=== PATIENT | female | born 1990 | race Caucasian/White ===

== ENCOUNTER 2018-12-15 13:14 | Emergency (ER) | payer SELFPAY ==
[2018-12-15 14:11] LABS: Absolute Lymphocytes (CBC) 1.4 K/uL (0.7-4.9); Absolute Monocytes 0.3 K/uL (0.1-1.3); Absolute Neutrophil 2.9 K/uL (1.8-8.0); Basophils % 0.5 % (0-1.3); Eosinophils % 1.6 % (0-4.4); Hematocrit 44.6 % (36.0-45.0); Lymphocytes % 30.3 % (15.3-44.8); Monocytes % 5.9 % (3.3-12.3); RBC Red Blood Cell Count 5.09 M/uL (3.86-4.86)
[2018-12-15 14:26] LABS: Potassium 3.9 mmol/L (3.5-5.1)
[2018-12-15] MEDS ORDERED: NA CHLORIDE 0.9% 1,000 ML ONE (14:50)
--- OUTSIDE RECORDS SUMMARY | 2018-12-15 15:06 | XMS REPORT ---
:1990 [facility] Address [address] [place] [address] Care Team Providers Name Role Phone Unavailable Unavailable Unavailable Payers Payer Name Policy Type Policy Number Effective Date Expiration Date Problems This patient has no known problems. Allergies, Adverse Reactions, Alerts Allergy Name Allergy Status Severity Reaction(s) Onset Inactive Treating Comments Type Date Date Clinician morphine DA Active [facility] 09-17 00:00: 00 codeine DA Active [facility] 3 00:00: 00 dexamethasone DA Active [facility] - 00:00: 00 Medications This patient has no known medications.
[2018-12-15] MEDS ORDERED: INSULIN -REGULAR HUMAN 50 UNIT/0.5 ML ML ONE (15:07)
[2018-12-15 15:34] LABS: Urine Blood 1+ (NEG); Urine Glucose 2+ (NEG); Urine Protein NEGATIVE (NEG); Urine Specific Gravity 1.005 (1.005-1.030)
[2018-12-15 17:33] LABS: BUN Blood Urea Nitrogen 12 mg/dL (7-18); Bicarbonate 25 mmol/L (21-32); Glucose Level 255 mg/dL (74-106); Sodium Level 141 mmol/L (136-145)
--- NOTE | 2018-12-15 17:54 | ER ---
Nurse's Notes [facility] Name: Radha Barker Age: 28 yrs Sex: Female : 1990 Arrival Date: 12/15/2018 Time: 13:18 Bed 26 Private MD: Diagnosis: Abnormal uterine and vaginal bleeding, unspecified;Hyperglycemia, unspecified Presentation: 12/15 13:19 Presenting complaint: Patient states: heavy vaginal bleeding for about 23 days. sv Transition of care: patient was not received from another setting of care. Onset of symptoms was November 2018. Initial Sepsis Screen: Does the patient meet any 2 criteria? No. Patient's initial sepsis screen is negative. Does the patient have a suspected source of infection? No. Patient's initial sepsis screen is negative. Care prior to arrival: None. 13:19 Method Of Arrival: Ambulatory sv 13:19 Acuity: JARROD 3 sv 13:59 Risk Assessment: Do you want to hurt yourself or someone else? Patient reports no ca1 desire to harm self or others. Triage Assessment: 13:59 General: Appears in no apparent distress. comfortable. General: Behavior is calm, ca1 cooperative, appropriate for age. Pain: Denies pain. 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 - Social history:: Smoking status: Patient/guardian denies using tobacco. - Ebola Screening: : No symptoms or risks identified at this time. Screenin:57 Abuse screen: Denies threats or abuse. Denies injuries from another. Nutritional ca1 screening: No deficits noted. Tuberculosis screening: No symptoms or risk factors identified. Fall Risk None identified. Assessment: 13:57 General: Appears in no apparent distress. comfortable, Behavior is calm, cooperative, ca1 appropriate for age. Pain: Denies pain. Neuro: Level of Consciousness is awake, alert, obeys commands, Oriented to person, place, time, situation. Cardiovascular: Heart tones S1 S2 present Capillary refill < 3 seconds Patient's skin is warm and dry. Respiratory: Airway is patent Trachea midline Respiratory effort is even, unlabored, Respiratory pattern is regular, symmetrical, Breath sounds are clear bilaterally. GI: Abdomen is round non-distended, Bowel sounds present X 4 quads. Abd is soft and non tender X 4 quads. : Reports vaginal bleeding that is bright red, with clots, heavy flow since about a month ago. EENT: No deficits noted. No signs and/or symptoms were reported regarding the EENT system. Derm: Skin is intact, is healthy with good turgor, Skin is pink, warm \T\ dry. Musculoskeletal: Circulation, motion, and sensation intact. Capillary refill < 3 seconds. 14:28 : Urine is clear. ca1 14:55 Reassessment: Patient appears in no apparent distress at this time. Patient and/or ca1 family updated on plan of care and expected duration. Pain level reassessed. Patient is alert, oriented x 3, equal unlabored respirations, skin warm/dry/pink. 15:58 Reassessment: Patient appears in no apparent distress at this time. Patient is alert, ca1 oriented x 3, equal unlabored respirations, skin warm/dry/pink. 16:50 Reassessment: Patient appears in no apparent distress at this time. Patient and/or ca1 family updated on plan of care and expected duration. Pain level reassessed. 17:26 Reassessment: Patient appears in no apparent distress at this time. Patient is alert, ca1 oriented x 3, equal unlabored respirations, skin warm/dry/pink. Awaiting result for repeat BMP. 18:10 Reassessment: Patient appears in no apparent distress at this time. Patient is alert, ca1 oriented x 3, equal unlabored respirations, skin warm/dry/pink. Vital Signs: 13:22 BP 146 / 76; Pulse 85; Resp 18; Temp 97.2; Pulse Ox 99% ; Weight 92.08 kg; Height 5 ft. sv 1 in. (154.94 cm); Pain 0/10; 14:23 BP 100 / 70 LA (auto/reg); Pulse 75; Pulse Ox 97% on R/A; Pain 0/10; jp3 15:30 BP 101 / 84; Pulse 73; Resp 17 S; Temp 97.5(O); Pulse Ox 100% on R/A; ca1 16:29 BP 115 / 69; Pulse 73; Resp 17 S; Pulse Ox 99% on R/A; ca1 17:26 BP 108 / 62; Pulse 72; Resp 17 S; Temp 98.(O); Pulse Ox 100% on R/A; ca1 18:10 BP 105 / 66; Pulse 72; Resp 17 S; Temp 98.4(O); Pulse Ox 99% on R/A; ca1 13:22 Body Mass Index 38.36 (92.08 kg, 154.94 cm) sv ED Course: 13:18 Patient arrived in ED. mr 13:21 Triage completed. sv 13:23 Arm band placed on. sv 13:29 Kofi Bryant PA is PHCP. jmm 13:29 Aman Ruano MD is Attending Physician. jmm 13:53 Callie Childers, NATHALIA is Primary Nurse. ca1 13:55 Inserted saline lock: 22 gauge in left antecubital area, using aseptic technique. Blood jp3 collected. 13:55 Initial lab(s) drawn, by me, sent to lab. jp3 13:57 Patient has correct armband on for positive identification. Placed in gown. Bed in low ca1 position. Call light in reach. Side rails up X 1. Pulse ox on. NIBP on. Warm blanket given. 13:59 BMP Sent. jp3 13:59 CBC with Diff Sent. jp3 14:28 Urine collected: clean catch specimen, clear, Amount Voided: 200mL. ca1 17:00 Assist provider with pelvic exam: Set up pelvic tray. Performed by Kofi RBUIO ca1 Patient tolerated well. 17:10 Repeat lab(s) drawn. by me, sent to lab. jp3 17:12 BMP Sent. jp3 17:53 Matthew Spence MD is Referral Physician. jmm 18:16 IV discontinued, intact, bleeding controlled, No redness/swelling at site. Pressure ca1 dressing applied. Administered Medications: 14:44 Drug: NS 0.9% 1000 ml Route: IV; Rate: 1 bolus; Site: left antecubital; ca1 16:20 Follow up: Urine output 360 ml; IV Status: Completed infusion ca1 14:54 Drug: Insulin Regular Human 5 units {Co-Signature: mg2 (Osiel Parham RN).} Route: ca1 IVP; Site: left antecubital; 17:34 Follow up: Response: No adverse reaction; Blood sugar is lowered ca1 Point of Care Testing: Blood Glucose: 16:12 Blood Glucose: 276 mg/dL; jp3 Ranges: Output: 16:20 Urine: 360ml; Total: 360ml. ca1 Outcome: 17:54 Discharge ordered by MD. sims 18:16 Discharged to home ambulatory, with family. ca1 18:16 Condition: stable 18:16 Discharge instructions given to patient, Instructed on discharge instructions, follow up and referral plans. Demonstrated understanding of instructions, follow-up care. 18:17 Patient left the ED. ca1 Signatures: Una Castillo, RN RN sv Kofi Bryant PA PA jmm Rivera, Mary mr Miriam Hero jp3 Callie Childers RN RN ca1 Osiel Parham RN mg2
--- NOTE | 2018-12-15 17:54 | EDPHYS ---
Physician Documentation [facility] Name: Radha Barker Age: 28 yrs Sex: Female : 1990 Arrival Date: 12/15/2018 Time: 13:18 Bed 26 Private MD: ED Physician Aman Ruano HPI: 12/15 13:43 This 28 yrs old Female presents to ER via Ambulatory with complaints of jmm Vaginal Bleeding. 13:43 The patient presents with vaginal bleeding that is. Onset: The symptoms/episode jmm began/occurred gradually, 1 month(s) ago. Modifying factors: The symptoms are alleviated by nothing, the symptoms are aggravated by nothing. Associated signs and symptoms: Pertinent negatives: urinary frequency, vomiting. This is a 28 year old female with a history of dm that presents to the ED with complaints of 1 month of vaginal bleeding. Patient denies dysuria. Denies weakness. Denies shortness of breath. . 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 - Social history:: Smoking status: Patient/guardian denies using tobacco. - Ebola Screening: : No symptoms or risks identified at this time. ROS: 13:43 Constitutional: Negative for fever, chills, and weight loss, Cardiovascular: Negative jmm for chest pain, palpitations, and edema, Respiratory: Negative for shortness of breath, cough, wheezing, and pleuritic chest pain, Abdomen/GI: Negative for abdominal pain, nausea, vomiting, diarrhea, and constipation. 13:43 : Positive for vaginal bleeding. 13:43 All other systems are negative. Exam: 13:43 Constitutional: This is a well developed, well nourished patient who is awake, alert, jmm and in no acute distress. Head/Face: atraumatic. Eyes: EOMI, no conjunctival erythema appreciated ENT: Moist Mucus Membranes Neck: Trachea midline, Supple Chest/axilla: Normal chest wall appearance and motion. Cardiovascular: Regular rate and rhythm. No edema appreciated Respiratory: Normal respirations, no respiratory distress appreciated Abdomen/GI: Non distended, soft Back: Normal ROM 13:43 Skin: General appearance color normal MS/ Extremity: Moves all extremities, no obvious deformities appreciated, no edema noted to the lower extremities Neuro: Awake and alert, normal gait Psych: Behavior is normal, Mood is normal, Patient is cooperative and pleasant 13:43 : Pelvic Exam: Speculum exam: scant bleeding, os that is closed. Vital Signs: 13:22 BP 146 / 76; Pulse 85; Resp 18; Temp 97.2; Pulse Ox 99% ; Weight 92.08 kg; Height 5 ft. sv 1 in. (154.94 cm); Pain 0/10; 14:23 BP 100 / 70 LA (auto/reg); Pulse 75; Pulse Ox 97% on R/A; Pain 0/10; jp3 15:30 BP 101 / 84; Pulse 73; Resp 17 S; Temp 97.5(O); Pulse Ox 100% on R/A; ca1 16:29 BP 115 / 69; Pulse 73; Resp 17 S; Pulse Ox 99% on R/A; ca1 17:26 BP 108 / 62; Pulse 72; Resp 17 S; Temp 98.(O); Pulse Ox 100% on R/A; ca1 18:10 BP 105 / 66; Pulse 72; Resp 17 S; Temp 98.4(O); Pulse Ox 99% on R/A; ca1 13:22 Body Mass Index 38.36 (92.08 kg, 154.94 cm) sv MDM: 13:42 Patient medically screened. levi 17:53 Data reviewed: vital signs, nurses notes. Counseling: I had a detailed discussion with levi the patient and/or guardian regarding: the historical points, exam findings, and any diagnostic results supporting the discharge/admit diagnosis, lab results, the need for outpatient follow up, to return to the emergency department if symptoms worsen or persist or if there are any questions or concerns that arise at home. 17:53 ED course: Patient is alert and non toxic in appearance in the ED. Patient is advised levi to follow up with OB and to take metformin as directed. Patient is otherwise given strict return precautions. Patient understood and agrees with the plan of care. . 12/15 13:42 Order name: CBC with Diff; Complete Time: 14:28 [facility] 12/15 13:42 Order name: BMP; Complete Time: 14:38 [facility] 12/15 14:31 Order name: Urine Dipstick--Ancillary (enter results); Complete Time: 15:37 12/15 16:14 Order name: Glucose, Ancillary Testing; Complete Time: 16:48 [facility] 12/15 16:27 Order name: BMP; Complete Time: 17:40 [facility] 12/15 13:42 Order name: Urine Dipstick-Ancillary (obtain specimen); Complete Time: 14:26 [facility] 12/15 13:42 Order name: Saline Lock; Complete Time: 13:53 [facility] 12/15 14:28 Order name: Pelvic Exam Setup; Complete Time: 14:43 [facility] Administered Medications: 14:44 Drug: NS 0.9% 1000 ml Route: IV; Rate: 1 bolus; Site: left antecubital; ca1 16:20 Follow up: Urine output 360 ml; IV Status: Completed infusion ca1 14:54 Drug: Insulin Regular Human 5 units {Co-Signature: mg2 (Osiel Parham RN).} Route: ca1 IVP; Site: left antecubital; 17:34 Follow up: Response: No adverse reaction; Blood sugar is lowered ca1 Point of Care Testing: Blood Glucose: 16:12 Blood Glucose: 276 mg/dL; jp3 Ranges: Critical Glucose Levels:Adult <50 mg/dl or >400 mg/dl <40 mg/dl or >180 mg/dl Disposition: 12/16 07:42 Co-signature as Attending Physician, Aman Ruano MD I agree with the assessment and kdr plan of care. Disposition: 12/15/18 17:54 Discharged to Home. Impression: Abnormal uterine and vaginal bleeding, unspecified, Hyperglycemia, unspecified. - Condition is Stable. - Discharge Instructions: Abnormal Uterine Bleeding, Hyperglycemia, Dysfunctional Uterine Bleeding. - Medication Reconciliation Form, Thank You Letter, Antibiotic Education, Prescription Opioid Use form. - Follow up: Matthew Spence MD; When: 2 - 3 days; Reason: Recheck today's complaints, Continuance of care, Re-evaluation by your physician. Signatures: Dispatcher [employer] Una Artis RN RN sv Rittger, Kevin, MD MD kdr Mickail, Joel, PA PA Callie Raines RN RN ca1 Osiel Parham RN mg2 Corrections: (The following items were deleted from the chart) 12/15 18:17 17:54 12/15/2018 17:54 Discharged to Home. Impression: Abnormal uterine and vaginal ca1 bleeding, unspecified; Hyperglycemia, unspecified. Condition is Stable. Forms are Medication Reconciliation Form, Thank You Letter, Antibiotic Education, Prescription Opioid Use. Follow up: Matthew Spence; When: 2 - 3 days; Reason: Recheck today's complaints, Continuance of care, Re-evaluation by your physician. levi
== END 2018-12-15 18:17 | disposition home or self-care (01) ==
LOC: ER 13:14
DX: N93.9 Abnormal uterine and vaginal bleeding, unspecified (principal); E11.65 Type 2 diabetes mellitus with hyperglycemia; Z88.5 Allergy status to narcotic agent; Z88.8 Allergy status to other drugs, medicaments and biological substances
CPT/HCPCS: 36415; 80048; 81003; 82962; 85025; 96361; 96374; 99284; J7030

== ENCOUNTER 2018-12-16 14:26 | Emergency (ER) | payer SELFPAY ==
--- OUTSIDE RECORDS SUMMARY | 2018-12-16 14:47 | XMS REPORT ---
:1990 [facility] Address [address] [place] [address] Care Team Providers Name Role Phone Unavailable Unavailable Unavailable Payers Payer Name Policy Type Policy Number Effective Date Expiration Date Problems This patient has no known problems. Allergies, Adverse Reactions, Alerts Allergy Name Allergy Status Severity Reaction(s) Onset Inactive Treating Comments Type Date Date Clinician morphine DA Active [place] 3- 00:00: 00 codeine DA Active [place] 3- 00:00: 00 dexamethasone DA Active [place] 3- 00:00: 00 Medications This patient has no known medications.
[2018-12-16] MEDS ORDERED: NA CHLORIDE 0.9% 1,000 ML ONE (16:50)
[2018-12-16 17:05] LABS: Absolute Lymphocytes (CBC) 1.8 K/uL (0.7-4.9); Absolute Monocytes 0.3 K/uL (0.1-1.3); Absolute Neutrophil 3.1 K/uL (1.8-8.0); Basophils % 0.5 % (0-1.3); Eosinophils % 1.4 % (0-4.4); Hematocrit 45.3 % (36.0-45.0); Lymphocytes % 34.2 % (15.3-44.8); MPV 9.6 fL (7.6-11.3); Monocytes % 5.5 % (3.3-12.3); RBC Red Blood Cell Count 5.26 M/uL (3.86-4.86)
[2018-12-16] MEDS ORDERED: INSULIN -REGULAR HUMAN 50 UNIT/0.5 ML ML ONE (17:37)
[2018-12-16 17:52] LABS: BUN Blood Urea Nitrogen 11 mg/dL (7-18); Bicarbonate 26 mmol/L (21-32); Glucose Level 292 mg/dL (74-106); Sodium Level 137 mmol/L (136-145)
--- NOTE | 2018-12-16 19:47 | EDPHYS ---
Physician Documentation [facility] Name: Radha Barker Age: 28 yrs Sex: Female : 1990 Arrival Date: 12/16/2018 Time: 14:28 Bed 19 Private MD: ED Physician Aman Ruano HPI: 12/16 16:31 This 28 yrs old Female presents to ER via Ambulatory with complaints of High pm1 Blood Sugar. 16:31 The patient or guardian reports hyperglycemia, that was potentially precipitated by pm1 eating, cereal this AM and occasionally forgetting her medications. Supposed to take metformin 500 mg PO BID. Onset: The symptoms/episode began/occurred this morning. Associated signs and symptoms: Pertinent positives: blurred vision earlier today with high blood sugar that resolved, Pertinent negatives: None. Current symptoms: In the emergency department the patient's symptoms have improved. The patient has experienced similar episodes in the past, a few times. The patient has been recently seen at the [facility] Emergency Department, yesterday, hyperglycemia and vaginal bleeding for 1 month. Historical: - Allergies: 14:51 Codeine; sv 14:51 Decadron; sv 14:51 Morphine; sv - PMHx: 14:51 Diabetes - NIDDM; sv - PSHx: 14:51 wisdom teeth; sv - Immunization history:: Adult Immunizations unknown. - Social history:: Smoking status: unknown. - Ebola Screening: : Patient negative for fever greater than or equal to 101.5 degrees Fahrenheit, and additional compatible Ebola Virus Disease symptoms Patient denies exposure to infectious person Patient denies travel to an Ebola-affected area in the 21 days before illness onset No symptoms or risks identified at this time. ROS: 16:31 Constitutional: Negative for fever, chills, and weight loss, Eyes: Negative for injury, pm1 pain, redness, and discharge, ENT: Negative for injury, pain, and discharge, Neck: Negative for injury, pain, and swelling, Cardiovascular: Negative for chest pain, palpitations, and edema, Respiratory: Negative for shortness of breath, cough, wheezing, and pleuritic chest pain, Abdomen/GI: Negative for abdominal pain, nausea, vomiting, diarrhea, and constipation, Back: Negative for injury and pain, : Negative for injury, bleeding, discharge, and swelling, MS/Extremity: Negative for injury and deformity, Skin: Negative for injury, rash, and discoloration, Neuro: Negative for headache, weakness, numbness, tingling, and seizure. Exam: 16:31 Constitutional: This is a well developed, well nourished patient who is awake, alert, pm1 and in no acute distress. Head/Face: Normocephalic, atraumatic. Eyes: Pupils equal round and reactive to light, extra-ocular motions intact. Lids and lashes normal. Conjunctiva and sclera are non-icteric and not injected. Cornea within normal limits. Periorbital areas with no swelling, redness, or edema. ENT: Nares patent. No nasal discharge, no septal abnormalities noted. Tympanic membranes are normal and external auditory canals are clear. Oropharynx with no redness, swelling, or masses, exudates, or evidence of obstruction, uvula midline. Mucous membranes moist. Neck: Trachea midline, no thyromegaly or masses palpated, and no cervical lymphadenopathy. Supple, full range of motion without nuchal rigidity, or vertebral point tenderness. No Meningismus. Chest/axilla: Normal chest wall appearance and motion. Nontender with no deformity. No lesions are appreciated. Cardiovascular: Regular rate and rhythm with a normal S1 and S2. No gallops, murmurs, or rubs. Normal PMI, no JVD. No pulse deficits. Respiratory: Lungs have equal breath sounds bilaterally, clear to auscultation and percussion. No rales, rhonchi or wheezes noted. No increased work of breathing, no retractions or nasal flaring. Abdomen/GI: Soft, non-tender, with normal bowel sounds. No distension or tympany. No guarding or rebound. No evidence of tenderness throughout. Back: No spinal tenderness. No costovertebral tenderness. Full range of motion. Skin: Warm, dry with normal turgor. Normal color with no rashes, no lesions, and no evidence of cellulitis. MS/ Extremity: Pulses equal, no cyanosis. Neurovascular intact. Full, normal range of motion. 16:31 Neuro: Orientation: is normal, Cranial nerves: grossly normal, CN II- XII are normal as tested, Cerebellar function: normal finger to nose testing, Motor: is normal, moves all fours, Sensation: is normal, no obvious gross deficits, Gait: is steady, at a normal pace, without difficulty. Vital Signs: 14:51 BP 141 / 80; Pulse 84; Resp 16; Pulse Ox 98% ; Weight 92.08 kg; Height 5 ft. 1 in. sv (154.94 cm); Pain 0/10; 16:07 BP 107 / 68; Pulse 66; Resp 17; Temp 98.2(O); Pulse Ox 96% on R/A; mh5 17:00 BP 119 / 77; Pulse 67; Resp 16; Temp 97.9(O); Pulse Ox 98% on R/A; mh5 18:19 BP 112 / 79; Pulse 66; Resp 17; Temp 98.5; Pulse Ox 100% ; mh5 20:02 BP 108 / 73; Pulse 80; Resp 16; Temp 98.5; Pulse Ox 99% on R/A; ak1 14:51 Body Mass Index 38.36 (92.08 kg, 154.94 cm) sv MDM: 16:18 Patient medically screened. pm1 17:06 Data reviewed: vital signs. Data interpreted: Pulse oximetry: on room air is 96 %. pm1 Interpretation: normal. 18:49 Counseling: I had a detailed discussion with the patient and/or guardian regarding: the pm1 historical points, exam findings, and any diagnostic results supporting the discharge/admit diagnosis, lab results. 12/16 16:18 Order name: BMP; Complete Time: 18:07 pm1 12/16 16:18 Order name: CBC with Diff; Complete Time: 17:06 pm1 12/16 16:25 Order name: Glucose, Ancillary Testing; Complete Time: 16:41 EDPR 12/16 17:19 Order name: Urine Dipstick--Ancillary (enter results) 12/16 17:19 Order name: Urine --Ancillary (enter results) 12/16 16:18 Order name: IV Saline Lock; Complete Time: 17:14 pm1 12/16 16:18 Order name: Urine Dipstick-Ancillary (obtain specimen); Complete Time: 17:14 pm1 12/16 16:18 Order name: Urine Test (obtain specimen); Complete Time: 17:14 pm1 12/16 18:08 Order name: Finger Stick; Complete Time: 18:35 pm1 12/16 19:07 Order name: Finger Stick; Complete Time: 19:46 pm1 Administered Medications: 17:14 Drug: NS 0.9% 1000 ml Route: IV; Rate: 1000 ml; Site: left antecubital; em 18:30 Follow up: IV Status: Completed infusion; IV Intake: 1000ml em 17:42 Drug: Insulin Regular Human 10 units {Co-Signature: em (Andrew Greenberg WATER SUPERVISOR).} Route: IVP; Site: left antecubital; 18:40 Follow up: Response: No adverse reaction; Blood sugar is lowered em Point of Care Testing: Blood Glucose: 14:54 Blood Glucose: 409 mg/dL; sv 18:17 Blood Glucose: 100 mg/dL; mh5 19:47 Blood Glucose: 259 mg/dL; ak1 Ranges: Critical Glucose Levels:Adult <50 mg/dl or >400 mg/dl <40 mg/dl or >180 mg/dl Disposition: 12/16/18 19:47 Discharged to Home. Impression: Hyperglycemia, unspecified. - Condition is Stable. - Discharge Instructions: Basic Carbohydrate Counting for Diabetes Mellitus, Hyperglycemia, Form - Daily Diabetes Record, Diabetes and Exercise. - Medication Reconciliation Form, Thank You Letter, Antibiotic Education, Prescription Opioid Use form. - Follow up: Emergency Department; When: As needed; Reason: Worsening of condition. Follow up: Private Physician; When: 2 - 3 days; Reason: Recheck today's complaints, Continuance of care, Re-evaluation by your physician. - Problem is new. - Symptoms have improved. Addendum: 12/18/2018 06:33 Co-signature as Attending Physician, Aman Ruano MD I agree with the assessment and k dr plan of care. Signatures: Dispatcher [employer] Una Artis, RN Aman Simpson MD MD kdr Munoz, Edgar, LVN WATER SUPERVISOR em Ann-Marie Gipson RN RN ss Krenek, Amber, RN RN ak1 Ronan Ray, POLY OPERATOR POLY OPERATOR pm1 Andrew Greenberg WATER SUPERVISOR em Corrections: (The following items were deleted from the chart) 12/16 20:03 19:47 12/16/2018 19:47 Discharged to Home. Impression: Hyperglycemia, unspecified. ak1 Condition is Stable. Discharge Instructions: Hyperglycemia, Basic Carbohydrate Counting for Diabetes Mellitus, Form - Daily Diabetes Record, Diabetes and Exercise. Forms are Medication Reconciliation Form, Thank You Letter, Antibiotic Education, Prescription Opioid Use. Follow up: Emergency Department; When: As needed; Reason: Worsening of condition. Follow up: Private Physician; When: 2 - 3 days; Reason: Recheck today's complaints, Continuance of care, Re-evaluation by your physician. Problem is new. Symptoms have improved. pm1
--- NOTE | 2018-12-16 19:47 | ER ---
Nurse's Notes [facility] Name: Radha Barker Age: 28 yrs Sex: Female : 1990 Arrival Date: 12/16/2018 Time: 14:28 Bed 19 Private MD: Diagnosis: Hyperglycemia, unspecified Presentation: 12/16 14:49 Presenting complaint: Patient states: hyperglycemia [id number] today, was seen here sv yesterday for BS and given insulin. Reports she forgets to check her BS and take her medicine. Transition of care: patient was not received from another setting of care. Onset of symptoms was December 16, 2018. Initial Sepsis Screen: Does the patient meet any 2 criteria? No. Patient's initial sepsis screen is negative. Does the patient have a suspected source of infection? No. Patient's initial sepsis screen is negative. Care prior to arrival: None. 14:49 Method Of Arrival: Ambulatory sv 14:49 Acuity: JARROD 3 sv 20:02 Risk Assessment: Do you want to hurt yourself or someone else? Patient reports no ak1 desire to harm self or others. Triage Assessment: 14:49 General: Appears in no apparent distress. comfortable, well developed, Behavior is sv calm, cooperative, appropriate for age. Pain: Denies pain. Neuro: Level of Consciousness is awake, alert, obeys commands, Oriented to person, place, time, situation, Moves all extremities. Full function Gait is steady, Speech is normal. Respiratory: Airway is patent Respiratory effort is even, unlabored, Respiratory pattern is regular, symmetrical. Derm: Skin is pink, warm \T\ dry. Historical: - Allergies: 14:51 Codeine; sv 14:51 Decadron; sv 14:51 Morphine; sv - PMHx: 14:51 Diabetes - NIDDM; sv - PSHx: 14:51 wisdom teeth; sv - Immunization history:: Adult Immunizations unknown. - Social history:: Smoking status: unknown. - Ebola Screening: : Patient negative for fever greater than or equal to 101.5 degrees Fahrenheit, and additional compatible Ebola Virus Disease symptoms Patient denies exposure to infectious person Patient denies travel to an Ebola-affected area in the 21 days before illness onset No symptoms or risks identified at this time. Screenin:45 Abuse screen: Denies threats or abuse. Nutritional screening: No deficits noted. em Tuberculosis screening: No symptoms or risk factors identified. Fall Risk None identified. Assessment: 16:45 General: Appears in no apparent distress. comfortable, Behavior is calm, cooperative. em Pain: Denies pain. Neuro: Level of Consciousness is awake, alert, obeys commands, Oriented to person, place, time, situation. Cardiovascular: Capillary refill < 3 seconds Patient's skin is warm and dry. Respiratory: Airway is patent Respiratory effort is even, unlabored, Respiratory pattern is regular, symmetrical. GI: Abdomen is flat. : Urine is clear. Derm: Skin is intact, is healthy with good turgor, Skin is pink, warm \T\ dry. Musculoskeletal: Capillary refill < 3 seconds, Range of motion: intact in all extremities. 17:00 Reassessment: the previous assessment is accurate,call light remains within reach. ss 17:45 Reassessment: Patient appears in no apparent distress at this time. Patient and/or em family updated on plan of care and expected duration. Pain level reassessed. Patient is alert, oriented x 3, equal unlabored respirations, skin warm/dry/pink. 18:59 Reassessment: Patient appears in no apparent distress at this time. Patient and/or em family updated on plan of care and expected duration. Pain level reassessed. Patient is alert, oriented x 3, equal unlabored respirations, skin warm/dry/pink. given sandwich and chips, ate 100%, pt tolerated well. Vital Signs: 14:51 BP 141 / 80; Pulse 84; Resp 16; Pulse Ox 98% ; Weight 92.08 kg; Height 5 ft. 1 in. sv (154.94 cm); Pain 0/10; 16:07 BP 107 / 68; Pulse 66; Resp 17; Temp 98.2(O); Pulse Ox 96% on R/A; mh5 17:00 BP 119 / 77; Pulse 67; Resp 16; Temp 97.9(O); Pulse Ox 98% on R/A; mh5 18:19 BP 112 / 79; Pulse 66; Resp 17; Temp 98.5; Pulse Ox 100% ; mh5 20:02 BP 108 / 73; Pulse 80; Resp 16; Temp 98.5; Pulse Ox 99% on R/A; ak1 14:51 Body Mass Index 38.36 (92.08 kg, 154.94 cm) ED Course: 14:28 Patient arrived in ED. as 14:51 Triage completed. sv 14:51 Arm band placed on. sv 16:08 Patient has correct armband on for positive identification. Bed in low position. Call [facility] light in reach. Side rails up X 1. Pulse ox on. NIBP on. 16:09 Ronan Ray NP is PHCP. pm1 16:09 Aman Ruano MD is Attending Physician. pm1 16:11 Andrew Greenberg LVN is Primary Nurse. em 16:55 Initial lab(s) drawn, by [place], sent to lab. Inserted saline lock: 22 gauge in left [facility] antecubital area, using aseptic technique. Blood collected. 16:56 CBC with Diff Sent. 5 20:02 No provider procedures requiring assistance completed. IV discontinued, intact, ak1 bleeding controlled, No redness/swelling at site. Pressure dressing applied. Administered Medications: 17:14 Drug: NS 0.9% 1000 ml Route: IV; Rate: 1000 ml; Site: left antecubital; em 18:30 Follow up: IV Status: Completed infusion; IV Intake: 1000ml em 17:42 Drug: Insulin Regular Human 10 units {Co-Signature: em (Andrew Greenberg LVN).} Route: IVP; Site: left antecubital; 18:40 Follow up: Response: No adverse reaction; Blood sugar is lowered em Point of Care Testing: Blood Glucose: 14:54 Blood Glucose: 409 mg/dL; sv 18:17 Blood Glucose: 100 mg/dL; 5 19:47 Blood Glucose: 259 mg/dL; ak1 Ranges: Intake: 18:30 IV: 1000ml; Total: 1000ml. em Outcome: 19:47 Discharge ordered by . pm1 20:03 Discharged to home ambulatory. ak1 20:03 Condition: good 20:03 Discharge instructions given to patient, Instructed on discharge instructions, follow up and referral plans. Demonstrated understanding of instructions, follow-up care. 20:03 Patient left the ED. ak1 Signatures: Una Castillo RN RN Andrew Greenberg LVN COMPLIANCE AND CONTROL ANALYST em Wanda Tsai Shelby, RN RN Sonia Jones RN RN [facility] Marinas, Ronan, GEOTECHNICIAN GEOTECHNICIAN pm1 Eulalio, Nathaly mh5 Andrew Greenberg COMPLIANCE AND CONTROL ANALYST em
[2018-12-16 20:10] LABS: Urine Blood NEGATIVE (NEG); Urine Glucose 2+ (NEG); Urine Protein NEGATIVE (NEG); Urine Specific Gravity 1.015 (1.005-1.030); Urine pH 5.5 (5.0-7.0)
== END 2018-12-16 20:03 | disposition home or self-care (01) ==
LOC: ER 14:26
DX: E11.65 Type 2 diabetes mellitus with hyperglycemia (principal); Z79.84 Long term (current) use of oral hypoglycemic drugs; Z88.5 Allergy status to narcotic agent; Z88.8 Allergy status to other drugs, medicaments and biological substances
CPT/HCPCS: 36415; 80048; 81003; 81025; 82962; 85025; 96361; 96374; 99284; J7030